=== PATIENT | male | born 1965 | race African-American/Black ===

== ENCOUNTER 2018-03-24 08:15 | Day surgery (SDC) | payer OTHER ==
[2018-03-23 15:21] VITALS: BMI 34.5
[2018-03-24 12:43] LABS: #Basophils 0.1 thou/uL (0.0-0.2); #Eosinphils 0.7 thou/uL (0.0-0.7); #Lymphocytes 2.1 thou/uL (1.20-3.40); #Monocytes 0.8 thou/uL (0.11-0.59); #Neutrophils 4.1 thou/uL (1.40-6.50); %Eosinophils 9.4 % (0.0-10.0); %Lymphocytes 26.9 % (21.0-51.0); %Monocytes 10.4 % (0.0-10.0); %Neutrophils 52.3 % (42.0-75.0); Hemoglobin 14.9 g/dL (14.0-18.0); Mean Corpuscular HGB CONC 33.3 g/dL (32.0-36.0); Mean Corpuscular Hemoglobin 29.5 pg (27.0-31.0); Mean Corpuscular Volume 88.6 fL (78.0-98.0); Mean Platelet Volume 6.6 fL (7.4-10.4); Platelet Count 307 thou/uL (130-400); RBC Distribution Width 12.6 % (11.5-14.5); Red Blood Cell (RBC) Count 5.04 mill/uL (4.70-6.10); White Blood Cell (WBC) Count 7.9 thou/uL (4.8-10.8)
[2018-03-24 13:03] LABS: Anion Gap 11 mmol/L (10-20); BUN (Urea Nitrogen) 10 mg/dL (8.4-25.7); Calc. Creatinine Clearance 153 mL/min (70-130); Calcium 9.7 mg/dL (7.8-10.44); Carbon Dioxide 25 mmol/L (22-29); Chloride 107 mmol/L (98-107); Estimated GFR-MDRD Greater than 90; Glucose 108 mg/dL (70-105); Potassium 3.8 mmol/L (3.5-5.1); Sodium 139 mmol/L (136-145)
[2018-03-24] MEDS ORDERED: CEFAZOLIN 2 GM/50 ML BAG ONE (13:44)
--- NOTE | 2018-03-24 13:57 | RAD ---
PA AND LATERAL CHEST: HISTORY: Preop. FINDINGS: Heart size is within normal limits. Mediastinal structures appear unremarkable. The lungs are clear of any infiltrative process. IMPRESSION: No active intrathoracic disease. POS: [facility]
--- NOTE | 2018-03-25 10:14 | EKG ---
Test Reason : PREOP Blood Pressure : / mmHG Vent. Rate : 069 BPM Atrial Rate : 069 BPM P-R Int : 168 ms QRS Dur : 084 ms QT Int : 390 ms P-R-T Axes : 067 059 038 degrees QTc Int : 417 ms Normal sinus rhythm ST elevation, consider early repolarization No previous ECGs available Confirmed by JOSÉ MANUEL NUÑEZ ([id number]) on 03/25/2018 10:14:14 AM Referred By: [place] Confirmed By:JOSÉ MANUEL NUÑEZ
== END 2018-03-24 15:20 | disposition home or self-care (01) ==
LOC: SDC 08:15
PROVIDERS: ATTEND Orthopaedic Surgery Hand Surgery
DX: G56.01 Carpal tunnel syndrome, right upper limb (principal); M19.90 Unspecified osteoarthritis, unspecified site; F41.9 Anxiety disorder, unspecified; Z87.891 Personal history of nicotine dependence; Z53.29 Procedure and treatment not carried out because of patient's decision for other reasons
CPT/HCPCS: 36415; 71046; 80048; 85025; 85652; 93005; 93010

== ENCOUNTER 2018-04-03 05:33 | Day surgery (SDC) | payer OTHER ==
[2018-04-03] MEDS ORDERED: Fentanyl 100 MCG/2 ML VIAL ONE ×2 (06:36→06:37)
[2018-04-03] MEDS ORDERED: Betamet Acet/Betamet Na Ph 30 MG/5 ML VIAL ONE (06:42)
[2018-04-03] MEDS ORDERED: Bupivacaine PF 0.5% 30 ML VIAL ONE (06:42)
[2018-04-03] MEDS ORDERED: Bacitracin Zinc Ointment 30 gm TUBE ONE (06:42)
[2018-04-03] MEDS ORDERED: Midazolam HCl 2 mg/2 ml Vial ONE (07:04)
[2018-04-03] MEDS ORDERED: CEFAZOLIN 2 GM/50 ML BAG ONE (07:05)
[2018-04-03] MEDS ORDERED: Ketorolac Tromethamine 30 MG/ML VIAL ONE (08:28)
--- NOTE | 2018-04-03 16:48 | OP ---
PREOPERATIVE DIAGNOSIS: Right carpal tunnel syndrome. POSTOPERATIVE DIAGNOSIS: Right carpal tunnel syndrome. PROCEDURES PERFORMED: 1. Right carpal tunnel release with open technique. 2. Placement of Celestone injection, carpal tunnel. INTRAOPERATIVE TOURNIQUET TIME: 19 minutes. ESTIMATED BLOOD LOSS: 10 mL ANESTHESIA: General LMA technique augmented by 10 mL 0.5% Marcaine block celia-incisional. FINDINGS: Very tight transcarpal ligament with a 1 cm area of hourglass formation and stippling. DESCRIPTION OF PROCEDURE: After successful general LMA technique, the limb was prepped and draped. Timeout was done appropriately. We then outlined the incision, which was in line with the ring finge r, medial and lateral for distal there is a 6 mm proximal to the volar wrist flexion crease. W e then made an incision slightly ulnar to the palmaris longus carried through skin and subcutaneous t issue, and identified the palmaris longus fascia, transverse carpal fascia interface. We then used a [place] blade to open the central portion of the transverse carpal ligament and we identified the und erlying neurotendinous structures. We then readjusted retraction, extended the open and transverse c arpal ligament from here distally, preserving all the distal nerve branches noticed in a motor branch intact with a type 1 takeoff. The patient then reverse, we then released the transcarpal ligament from the center portion pro ximally using a combination of [place] blade and tenotomy scissors. Then I inspected and found the ca rpal canal be completely open on visualization and with retraction. We then noticed the stippling with erythema, hourglass formation almost 1 cm and flattening. We plac ed a 3 mL of Celestone over this area of the nerve, allowed to sit for 1 minute and then released the tourniquet and had hemostasis. We closed the incision with interrupted 4-0 nylon in a mattress lobito misa, bulky dressing was applied with a soft dressing. The patient left the operating room without ev idence of anesthetic or operative complication.
== END 2018-04-03 09:30 | disposition home or self-care (01) ==
LOC: SDC 05:33
PROVIDERS: ATTEND Orthopaedic Surgery Hand Surgery
PROC: 01N50ZZ Release Median Nerve, Open Approach (ICD-10-PCS; principal; 2018-04-03)
DX: G56.01 Carpal tunnel syndrome, right upper limb (principal); F41.9 Anxiety disorder, unspecified; M19.90 Unspecified osteoarthritis, unspecified site; Z87.891 Personal history of nicotine dependence; Z91.041 Radiographic dye allergy status; Z98.890 Other specified postprocedural states
CPT/HCPCS: 85652; J0702; J1885; J2250; J3010; S0020

== ENCOUNTER 2019-09-22 15:01 | Emergency (ER) | payer OTHER ==
[2019-09-22] MEDS ORDERED: Lorazepam 1 MG TAB ONE ×2 (15:29→18:28)
[2019-09-22 15:35] LABS: #Basophils 0.1 thou/uL (0.0-0.2); #Eosinphils 0.4 thou/uL (0.0-0.7); #Lymphocytes 1.7 thou/uL (1.20-3.40); #Monocytes 0.7 thou/uL (0.11-0.59); %Basophils 1.1 % (0.0-1.0); %Eosinophils 5.3 % (0.0-10.0); %Lymphocytes 24.5 % (21.0-51.0); %Monocytes 9.9 % (0.0-10.0); %Neutrophils 59.3 % (42.0-75.0); Hemoglobin 14.9 g/dL (14.0-18.0); Mean Corpuscular HGB CONC 33.4 g/dL (32.0-36.0); Mean Corpuscular Volume 95.9 fL (78.0-98.0); Platelet Count 300 thou/uL (130-400); RBC Distribution Width 12.8 % (11.5-14.5); Red Blood Cell (RBC) Count 4.67 mill/uL (4.70-6.10); White Blood Cell (WBC) Count 6.8 thou/uL (4.8-10.8)
[2019-09-22 15:47] LABS: Bilirubin Negative (Negative); Blood, Urine Negative (Negative); Clarity Clear (Clear); Glucose, Urine (Dipstick) Normal (Negative); Leukocyte Negative Leu/uL (Negative); Nitrite Negative (Negative); Protein, Urine (Dipstick) Negative (Neg-Trace); Urobilinogen Normal mg/dL (Less than 2)
[2019-09-22 15:55] LABS: Acetaminophen Less than 6.0 mcg/mL (10.0-30.0); Alcohol Less than 10 mg/dL (Less than 10); Salicylate Less than 8.0 mg/dL (15.0-30.0)
[2019-09-22 15:57] LABS: ALT (SGPT) 27 U/L (8-55); AST (SGOT) 22 U/L (5-34); Albumin 3.9 g/dL (3.5-5.0); Alcohol Less than 10 mg/dL (Less than 10); Alkaline Phosphatase 96 U/L (40-110); Anion Gap 12 mmol/L (10-20); BUN (Urea Nitrogen) 12 mg/dL (8.4-25.7); Bilirubin, Total 0.2 mg/dL (0.2-1.2); Calc. Creatinine Clearance 0 mL/min (70-130); Calcium 9.3 mg/dL (7.8-10.44); Carbon Dioxide 23 mmol/L (22-29); Chloride 112 mmol/L (98-107); Estimated GFR-MDRD Greater than 90; Glucose 99 mg/dL (70-105); Potassium 4.7 mmol/L (3.5-5.1); Protein, Total 6.9 g/dL (6.0-8.3); Sodium 142 mmol/L (136-145)
[2019-09-22 15:59] LABS: Amphetamine Not Detected (NotDetected); Cocaine Metabolite Screen Detected (NotDetected); Medtox Reader # READER 4; Methamphetamine Not Detected (NotDetected); Opiate Screen Not Detected (NotDetected); Phencyclidine (PCP) Not Detected (NotDetected); THC/Cannabinoid Screen Not Detected (NotDetected)
[2019-09-22 16:00] LABS: Barbiturates Screen Not Detected (NotDetected); Benzodiazepine Screen Not Detected (NotDetected); Medtox Control Line Valid? VALID (VALID); Methadone Not Detected (NotDetected); Oxycodone Screen Not Detected (NotDetected); Tricyclic Screen Not Detected (NotDetected)
[2019-09-22] MEDS ORDERED: Ziprasidone 20 MG CAP ONE (18:28)
[2019-09-22] MEDS ORDERED: Haloperidol Lactate 5 MG/ML VIAL ONE (21:03)
[2019-09-22] MEDS ORDERED: diphenhydrAMINE 50 MG/ML VIAL ONE (21:03)
--- NOTE | 2019-09-23 12:10 | EKG ---
Test Reason : Blood Pressure : / mmHG Vent. Rate : 063 BPM Atrial Rate : 063 BPM P-R Int : 154 ms QRS Dur : 086 ms QT Int : 394 ms P-R-T Axes : 042 058 048 degrees QTc Int : 403 ms Normal sinus rhythm Cannot rule out Anterior infarct , age undetermined Abnormal ECG Confirmed by NESS CHARLTON ([id number]), make up editor INDRA LOPES ([id number]) on 09/23/2019 12:10:40 PM Referred By: Confirmed By:NESS Schwab
== END 2019-09-22 23:15 ==
LOC: ERS 15:01
DX: R45.851 Suicidal ideations (principal); I10 Essential (primary) hypertension; B20 Human immunodeficiency virus [HIV] disease; F41.9 Anxiety disorder, unspecified; F31.9 Bipolar disorder, unspecified; F20.9 Schizophrenia, unspecified; F17.210 Nicotine dependence, cigarettes, uncomplicated
CPT/HCPCS: 36415; 80053; 80306; 80307; 81003; 85025; 93005; J1200; J1630

== ENCOUNTER 2020-03-09 10:35 | Emergency (ER) | payer OTHER ==
[2020-03-09] MEDS ORDERED: Ketorolac Tromethamine 30 MG/ML VIAL ONE (11:16)
[2020-03-09] MEDS ORDERED: Acetaminophen 500 MG TAB ONE (11:16)
[2020-03-09 11:57] LABS: #Basophils 0.1 thou/uL (0.0-0.2); #Eosinphils 0.2 thou/uL (0.0-0.7); #Lymphocytes 1.7 thou/uL (1.20-3.40); #Monocytes 0.6 thou/uL (0.11-0.59); #Neutrophils 5.7 thou/uL (1.40-6.50); %Basophils 0.9 % (0.0-1.0); %Eosinophils 2.8 % (0.0-10.0); %Lymphocytes 20.2 % (21.0-51.0); %Monocytes 7.3 % (0.0-10.0); %Neutrophils 68.7 % (42.0-75.0); Hemoglobin 15.3 g/dL (14.0-18.0); Mean Corpuscular HGB CONC 34.1 g/dL (32.0-36.0); Mean Corpuscular Hemoglobin 31.6 pg (27.0-31.0); Mean Corpuscular Volume 92.7 fL (78.0-98.0); Platelet Count 280 thou/uL (130-400); RBC Distribution Width 12.7 % (11.5-14.5); Red Blood Cell (RBC) Count 4.85 mill/uL (4.70-6.10); White Blood Cell (WBC) Count 8.3 thou/uL (4.8-10.8)
[2020-03-09 12:27] LABS: ALT (SGPT) 22 U/L (8-55); AST (SGOT) 22 U/L (5-34); Albumin 4.2 g/dL (3.5-5.0); Alkaline Phosphatase 80 U/L (40-110); Anion Gap 11 mmol/L (10-20); BUN (Urea Nitrogen) 9 mg/dL (8.4-25.7); Bilirubin, Total 0.6 mg/dL (0.2-1.2); CK (CPK) 285 U/L (30-200); Calc. Creatinine Clearance 0 mL/min (70-130); Calcium 8.9 mg/dL (7.8-10.44); Carbon Dioxide 24 mmol/L (22-29); Chloride 108 mmol/L (98-107); Estimated GFR-MDRD Greater than 90; Globulin 2.9 g/dL (2.4-3.5); Glucose 137 mg/dL (70-105); Lipase 51 U/L (8-78); Potassium 3.5 mmol/L (3.5-5.1); Protein, Total 7.1 g/dL (6.0-8.3); Sodium 139 mmol/L (136-145)
--- NOTE | 2020-03-09 12:27 | RAD ---
XR Chest Pa Lat STANDARD HISTORY: Chest pain COMPARISON: 03/24/2018 FINDINGS: The heart size is normal. The aorta is tortuous. The lungs are well expanded without focal areas of consolidation, pneumothorax or pleural effusions. IMPRESSION: No radiographic evidence of acute cardiopulmonary process.
--- NOTE | 2020-03-11 14:08 | EKG ---
Test Reason : Blood Pressure : / mmHG Vent. Rate : 076 BPM Atrial Rate : 076 BPM P-R Int : 156 ms QRS Dur : 090 ms QT Int : 388 ms P-R-T Axes : 064 068 065 degrees QTc Int : 436 ms Normal sinus rhythm Septal infarct , age undetermined Abnormal ECG Confirmed by NESS CHARLTON ([id number]), development editor BRYAN NOBLE ([id number]) on 03/11/2020 2:07:56 PM Referred By: Confirmed By:NESS Schwab
== END 2020-03-09 13:16 | disposition home or self-care (01) ==
LOC: ERS 10:35
DX: M79.622 Pain in left upper arm (principal); Z21 Asymptomatic human immunodeficiency virus [HIV] infection status; I10 Essential (primary) hypertension; Z89.012 Acquired absence of left thumb; F31.9 Bipolar disorder, unspecified; F41.9 Anxiety disorder, unspecified; F20.9 Schizophrenia, unspecified; F17.210 Nicotine dependence, cigarettes, uncomplicated; Z79.899 Other long term (current) drug therapy
CPT/HCPCS: 36415; 71046; 80053; 82550; 83690; 84484; 85025; 93005; 96374; J1885

== ENCOUNTER 2020-04-09 10:38 | Emergency (ER) | payer OTHER ==
[2020-04-09 11:13] LABS: #Eosinphils 0.3 thou/uL (0.0-0.7); #Lymphocytes 1.6 thou/uL (1.20-3.40); #Monocytes 0.4 thou/uL (0.11-0.59); #Neutrophils 3.8 thou/uL (1.40-6.50); %Basophils 0.6 % (0.0-1.0); %Eosinophils 4.4 % (0.0-10.0); %Monocytes 7.1 % (0.0-10.0); Hemoglobin 15.2 g/dL (14.0-18.0); Mean Corpuscular HGB CONC 33.4 g/dL (32.0-36.0); Mean Corpuscular Hemoglobin 31.8 pg (27.0-31.0); Mean Corpuscular Volume 95.2 fL (78.0-98.0); Mean Platelet Volume 6.8 fL (7.4-10.4); Platelet Count 288 thou/uL (130-400); RBC Distribution Width 12.6 % (11.5-14.5); Red Blood Cell (RBC) Count 4.79 mill/uL (4.70-6.10); White Blood Cell (WBC) Count 6.2 thou/uL (4.8-10.8)
[2020-04-09 11:33] LABS: ALT (SGPT) 17 U/L (8-55); AST (SGOT) 15 U/L (5-34); Albumin 3.9 g/dL (3.5-5.0); Alkaline Phosphatase 90 U/L (40-110); Anion Gap 13 mmol/L (10-20); BUN (Urea Nitrogen) 10 mg/dL (8.4-25.7); Bilirubin, Total 0.2 mg/dL (0.2-1.2); Calc. Creatinine Clearance 0 mL/min (70-130); Calcium 9.8 mg/dL (7.8-10.44); Carbon Dioxide 25 mmol/L (22-29); Chloride 110 mmol/L (98-107); Glucose 176 mg/dL (70-105); Potassium 3.8 mmol/L (3.5-5.1); Protein, Total 6.9 g/dL (6.0-8.3); Sodium 144 mmol/L (136-145)
[2020-04-09] MEDS ORDERED: Ondansetron PF 4 MG/2 ML Vial ONE (11:54)
[2020-04-09] MEDS ORDERED: Morphine 4 MG/ML VIAL ONE (11:54)
[2020-04-09] MEDS ORDERED: Lidocaine 1% PF 5 ML VIAL ONE (11:55)
[2020-04-09] MEDS ORDERED: Lidocaine 1% (PF) 30 ML VIAL ONE (11:55)
[2020-04-09] MEDS ORDERED: Triple Antibiotic Oint 1 GM Packet ONE (12:17)
[2020-04-09] MEDS ORDERED: cefTRIAXone\\ROCEPHIN 1 GM VIAL ONE (13:17)
--- NOTE | 2020-04-09 13:19 | RAD ---
Chest AP view INDICATION: Chest pain and swollen penis COMPARISON: Prior exam dated March 09, 2020 FINDINGS: Lungs: No definite acute infiltrate. The lungs are mildly hypoinflated. Cardiac silhouette: The cardiomediastinal silhouette appears within normal limits. Pulmonary vasculature: Normal Pleural spaces: No pleural effusion or pneumothorax is demonstrated. Upper abdomen: No abnormality seen. Osseous structures: No acute osseous abnormality. Additional findings: None. IMPRESSION: No acute cardiopulmonary abnormality.
[2020-04-09 14:55] LABS: Troponin I Less than 0.010 ng/mL (< 0.028)
[2020-04-09] MEDS ORDERED: Triple Antibiotic Ointment 30 GM TUBE TOP PRN (15:22)
[2020-04-09] MEDS ORDERED: Triple Antibiotic Ointment 30 GM TUBE TOP SCH (15:24)
--- NOTE | 2020-04-09 17:55 | CON ---
DATE OF CONSULTATION: 04/09/2020 HISTORY OF PRESENT ILLNESS: This is a 54-year-old male, who I am seeing in the emergency room here [facility] today on 04/09/2020. He has had paraphimosis since at least Friday evening and it is now after lunch time on Friday. It was sore and painful friday evening and he got in a bathtub and tried to release it and reduce it, but was unable to. He did not come to the ER sooner because he said he did not have transportation, but he came in today very painful. ER doctor called me and we talked about whether he would try to reduce it or if I should come in. He indicated that the glans was still pink and he was just having a great deal of pain. They have not tried to reduce it. He is HIV positive. It appears that he has been here at [facility] a few times, he has had some x-ray services, he has had what looks like right carpal tunnel couple of years ago by Dr. Rowell. He does report some difficulty retracting his foreskin but no problems like he is currently hving before this episode. He has still been able to void without difficulty. His vital signs are currently stable apart from being slightly hypertensive. He has no known drug allergies. He does take hydrochlorothiazide. Testicles are descended. No mass. No tenderness. The scrotum is without abnormality. He is not circumcised. He has a paraphimosis. The glans is pink and foreskin is pink. I went ahead and placed a Xylocaine jelly around the head of the glans, the inner foreskin, and around the area of the distal shaft. I then was able to reduce the paraphimosis manually and it was done to completion. Triple antibiotic ointment was applied. I have asked the nurses to give him a tube of triple antibiotic ointment to use 3 times per day. I like him to pull the skin back just enough to barely see the tip of the penis and then to place ointment in this region and then on the tip of the foreskin itself. Circumcision could be done electively if he desired. I told him if he ever gets the skin pulled back again, then he should immediately replace it to its normal position and if he cannot do that, he should get to the emergency room right away. I discussed giving him an IM injection of rocephin with the ER attending Dr. Driver. He said he would order it. Job ID: [id number] MTDD
--- NOTE | 2020-04-15 17:08 | EKG ---
Test Reason : EMERGENCY EXAM Blood Pressure : / mmHG Vent. Rate : 080 BPM Atrial Rate : 080 BPM P-R Int : 154 ms QRS Dur : 094 ms QT Int : 358 ms P-R-T Axes : 068 064 047 degrees QTc Int : 412 ms Normal sinus rhythm Possible Left atrial enlargement Borderline ECG Confirmed by GARTH SANCHEZ DO ([id number]), video news editor BRYAN NOBLE ([id number]) on 04/15/2020 5:07:33 PM Referred By: Confirmed By:GARTH SANCHEZ DO
== END 2020-04-09 15:18 | disposition home or self-care (01) ==
LOC: ERS 10:38
DX: R07.9 Chest pain, unspecified (principal); N47.2 Paraphimosis; Z21 Asymptomatic human immunodeficiency virus [HIV] infection status; I10 Essential (primary) hypertension; F20.9 Schizophrenia, unspecified; F31.9 Bipolar disorder, unspecified; F41.9 Anxiety disorder, unspecified; F17.210 Nicotine dependence, cigarettes, uncomplicated; Z89.012 Acquired absence of left thumb
CPT/HCPCS: 36415; 71045; 80053; 84484; 85025; 93005; 96365; 96375; J0696; J2001; J2270; J2405